=== PATIENT | female | born 1990 | race Caucasian/White ===

== ENCOUNTER 2017-01-31 19:42 | Emergency (ER) | payer OTHER ==
[~2017-01-31] VITALS: Ht 177.8 cm; Wt 62.3 kg
[~2017-01-31 19:42] MED LIST: ALBU8.5H2 INHALATION; BECL8.7A6 IH; IBUP800T28 PO; MULT-666 PO; OXYC1TAB24 PO; SUMA50TA2 PO
[2017-01-31 19:55] VITALS: BP 116/81; PULSE 82; RESP 20; O2SAT 98
--- NOTE | 2017-01-31 20:43 | ED.REPORT ---
HPI-Abd Pain F Under 40 Date of Service Jan 31, 2017 ED Provider: Lebron Villasenor DO Pt is a 26 y.o. female with a hx of asthma and unspecified renal problems who presents to the ED c/o abdominal pain onset 0300 yesterday. She reports associated fever (103.1F), nausea, vomiting, and diarrhea. She denies hematochezia and hematemesis. She also denies recent travel, or consumption of well, stream, or [place] water. Pt states that she had the flu on Jan 08 and was seen at [place], she received CT and it was normal. She denies recent sick contacts. Nursing Notes Stated Complaint: RT SIDE ABDOMEN PAIN Chief Complaint: Female Abdominal Pain Nursing Notes Reviewed: Yes Allergies: Coded Allergies: latex (Verified Allergy, Severe, RASH/HIVES, 01/31/17) adhesive tape (Verified Allergy, Intermediate, rash, 01/31/17) Penicillins (Verified Allergy, Unknown, ALLERGY TESTING SHOWED RXN TO PCN , 01/31/17) erythromycin base (Verified Allergy, Unknown, 01/31/17) Sulfa (Sulfonamide Antibiotics) (Verified Adverse Reaction, Severe, N/V, ) amoxicillin (Verified Adverse Reaction, Severe, VOMITING, 01/31/17) Uncoded Allergies: CHOCOLATE (Allergy, Intermediate, N/V, 09/02/15) Scheduled Albuterol HFA (Proair HFA) 8.5 Gm Hfa.aer.ad 2 PUFFS INHALATION PRN Beclomethasone Dipropionate (Qvar) 8.7 Gm Aer.w.adap 8.7 GM IH BID Sumatriptan Succinate (Sumatriptan Succinate) 50 Mg Tablet 50 MG PO PRN Scheduled PRN Ibuprofen (Ibuprofen) 800 Mg Tablet 800 MG PO Q6H PRN PRN For Pain oxyCODONE-Acetaminophen 5-325 mg (oxyCODONE-Acetaminophen 5-325 mg) 1 Tab Tablet 1-2 TAB PO Q4H PRN PRN For Pain Miscellaneous Medications Multivitamin (Once Daily) 1 Each Tablet 1 EACH PO General Time Seen by MD: 20:42 Chief Complaint Abdominal pain Hx Obtained From: Patient Arrived By: Walk-in Sudden in Onset?: Yes Onset Occurred: Yesterday Symptom Duration: Since onset Location: : RLQ Quality: Painful Severity: Current: Mild Past Medical History Past Medical History Notes: Post , admit 08/29-08/31 @ 40 5/7 weeks Past Medical History h/o kidney probems requring stent (details unclear) Reports: Asthma Past Surgical History R knee and 4 ear surgeries and stent placement while Reports: Tonsillectomy Reports: Back/neck surgery Smoking History Former Smoker Social History Alcohol Use: "Social" Drug Use: THC 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 Physical Exam Initial Vital Signs Vital Signs (First) Date Time Temp Pulse Resp B/P Pulse Ox O2 Delivery O2 Flow Rate FiO2 01/31/17 19:55 37.3 82 20 116/81 98 Room Air Initial VS: Reviewed Head / Eyes: Atraumatic, Normocephalic Extremities: Vascular intact, Neuro intact Skin: Warm, Dry, No cyanosis Neurologic: Alert, Oriented, Nonfocal Psychiatric: Mood/affect normal, Behavior normal, Normal thought content General/Constitutional: Awake, Alert, No acute distress, Well appearing, Well developed, Well hydrated, Well nourished, Not toxic appearing Respiratory / Chest: Atraumatic, Breath sounds NL, Breath sounds = bilat, No respiratory distress, No rales, No rhonchi, No wheezing, No retractions, No stridor Cardiovascular: Heart rate NL, Regular rhythm, Heart sounds NL, No gallop, No murmurs, Peripheral circulation NL Abdomen: Atraumatic, Soft, No guarding, No rebound, No distention Tenderness/Guarding/Rebound: Positive: Tender RLQ... Bowel Sounds / Distention: Positive: Bowel sounds hyperactive Back: Atraumatic Well healed surgical incision Neck: Atraumatic, Supple, No adenopathy Interpretation & Diagnostics Lab Results Interpretation Result Diagram: 01/31/17203701/31/172037 Test 01/31/17 20:21 01/31/17 20:38 Urine Color Yellow (YELLOW) Urine Appearance Clear (CLEAR,HAZY) Urine pH 6.5 (5.0-8.0) Urine Specific [place] 1.020 (1.003-1.035) Urine Protein Negativemg/dL (NEG,TRACE) Urine Glucose (UA) Negativemg/dL (NEGATIVE) Urine Ketones Negativemg/dL (NEGATIVE) Urine Occult Blood Trace (NEGATIVE) Urine Nitrite Negative (NEGATIVE) Urine Bilirubin Negative (NEGATIVE) Urine Urobilinogen 1.0mg/dL (NORMAL) Urine Leukocyte Esterase Negative (NEGATIVE) Urine RBC 0-2/hpf (0-2) Urine WBC 0-5/hpf (0-5) Urine Epithelial Cells Moderate/hpf (NONE-MOD) Urine Crystals None seen (NONE SEEN) Urine Bacteria None/hpf (NONE-FEW) Urine Hyaline Casts None/lpf (NONE) Urine Granular Casts None seen (NONE SEEN) Urine Waxy Casts None seen (NONE SEEN) Urine Red Blood Cell Casts None seen (NONE SEEN) Urine White Blood Cell Casts None seen (NONE SEEN) Urine Mucus Present (None Seen) Urine Trichomonas None seen (NONE SEEN) Urine Yeast None (NONE SEEN) Urinalysis Comment None Urine Culture Reflexed Not indicated White Blood Count 9.8th/mm3 (3.8-10.1) Red Blood Count 4.55mil/mm3 (3.90-5.20) Hemoglobin 13.4g/dL (12.0-15.6) Hematocrit 39.1% (35.0-46.0) Mean Corpuscular Volume 85.9fL (81-100) Mean Corpuscular Hemoglobin 29.5pg (27.0-35.0) Mean Corpuscular Hemoglobin Concent 34.3% (32.0-37.0) Red Cell Distribution Width 12.2% (12.3-15.4) Platelet Count 210bil/L (150-400) Neutrophils (%) (Auto) 48.4% (40-74) Lymphocytes (%) (Auto) 44.0% (14-46) Monocytes (%) (Auto) 5.8% (4-12) Eosinophils (%) (Auto) 1.4% (0-5) Basophils (%) (Auto) 0.3% (0-3) Sodium Level 141mEq/L (134-144) Potassium Level 3.7mEq/L (3.5-5.2) Chloride Level 103mEq/L (97-108) Carbon Dioxide Level 24mmol/L (18-29) Blood Urea Nitrogen 16mg/dL (6-20) Creatinine 0.64mg/dL (0.57-1.00) Estimat Glomerular Filtration Rate 162mL/min (>59) Glucose Level 87mg/dL (60-99) Calcium Level 9.5mg/dL (8.5-10.1) Magnesium Level 2.0mg/dL (1.6-2.6) Total Bilirubin 0.8mg/dL (0.0-1.2) Aspartate Amino Transf (AST/SGOT) 15U/L (0-50) Alanine Aminotransferase (ALT/SGPT) 10U/L (0-32) Alkaline Phosphatase 52U/L (25-150) Total Protein 7.4g/dL (6.4-8.4) Albumin 5.1g/dL (3.4-5.0) Lipase 12U/L (13-60) Hold Red Top Tube Received (Received) Hold Paula Top Tube Received (Received) Re-Eval/Medical Decision Med Decision/Clinical Course Ultrasound was reassuring, the appendix was not clearly seen. Upon recheck pt is feeling improved, her pain resolved, and only has nausea. I prescribed Zofran for the nausea. I discussed performing a CT scan with Colleen and she made me aware that she has had 2 in last couple months does not wish to undergo another. Discussed the need for a repeat US in the morning if her pain persisted. Re-Evaluation/Progress : Time of Eval: 22:34 Re-Evaluation/Progress Note: Pt rechecked. Discussed plan for discharge, pt understands and agrees with plan. Counseled Regarding: Diagnosis Discharge & Departure Shift Change Sign-Out Response to Therapy: Improved Primary Impression: Abdominal pain Abdominal location: right lower quadrant Qualified Code: R10.31 - Right lower quadrant pain Additional Impression: Nausea vomiting and diarrhea Disposition: Home Discharge Condition All VS Reviewed: Yes Condition: Improved Patient Instructions: Acute Nausea and Vomiting (ED), Acute Abdominal Pain (ED) Additional Instructions: You were seen here today for nausea, vomiting,and abdominal pain. I recommend that you maintain a clear liquid diet and do not consume anything after midnight tonight. Return in 8-10 hours for a repeat ultrasound if your pain persists. You may have an early appendicitis so it is important that you have a repeat the ultrasound if your pain does not resolve. Take 1 Zofran every 8 hours as needed for nausea. Do not drive tonight. Return if you develop bloody diarrhea, increased pain, begin vomiting blood, or have any new or worsening symptoms. Referrals: Kenisha Toussaint PA-C (PCP) Lori Attestation Portions of this note were transcribed by Josep Alejandro. I, Dr. Villasenor personally performed the history, physical exam and medical decision-making; I reviewed and confirmed the accuracy of the information in the transcribed note. Signed by : Lori Escobar, 01/31/17 and [id number]. copies to: Kenisha Toussaint PA-C, Todd P DO Jan 31, 2017 20:43 JOSEP ALEJANDRO Jan 31, 2017 21:09
[2017-01-31 20:46] LABS: BASOPHILS % (AUTO) 0.3 % (0-3); EOSINOPHILS % (AUTO) 1.4 % (0-5); MONOCYTES % (AUTO) 5.8 % (4-12); Mean Corpuscular Hemoglobin 29.5 pg (27.0-35.0); Mean Corpuscular Volume 85.9 fL (81-100); NEUTROPHILS % (AUTO) 48.4 % (40-74); Platelet Count 210 bil/L (150-400)
[2017-01-31 20:56] LABS: APPEARANCE,URINE CLEAR (CLEAR,HAZY); COLOR,URINE YELLOW (YELLOW); OCCULT BLOOD,URINE TRACE (NEGATIVE); PH,URINE 6.5 (5.0-8.0)
[2017-01-31] MEDS ORDERED: 0.9% Sodium Chloride 1,000 ML IV SCH (21:15)
[2017-01-31] MEDS ORDERED: HYDROmorphone 0.5 mg/0.5 mL iSecure Syringe IVPUSH PRN (21:15)
[2017-01-31] MEDS ORDERED: Ondansetron 2 mg/mL 2 mL Inj IVPUSH PRN (21:15)
[2017-01-31] MEDS ORDERED: _Ondansetron ODT 4 mg Tablet PO PRN (22:50)
[2017-01-31 23:38] VITALS: BP 125/70; PULSE 88; RESP 16; O2SAT 97; O2SAT 98
--- NOTE | 2017-02-01 08:10 | DRSVH ---
PROCEDURE: US APPENDIX INDICATIONS: rlq pain TECHNIQUE: Real-time focused scanning was performed of the abdomen with attention to the appendix, with image do cumentation. COMPARISON: [facility], CT, CT ABDOMEN PELVIS W CONTRAST, 01/08/2017, 9:16 PM. FINDINGS: Limited evaluation of the right lower quadrant demonstrates no abnormalities. The appendix is not cl early identified sonographically. No abnormal fluid collections or masses seen. Grossly normal appearance of the right ovary. An IUD is identified. IMPRESSION: The appendix is not visualized and cannot be evaluated. If medically indicated, contrast enhanced abdominal CT may be obtained for further evaluation. Note: These findings are concordant with the preliminary interpretation. Dictated by: Mayco AREVALO Interpreted: Amor Pemberton MD on 02/01/2017 at 8:08 Transcribed by: ZAYRA on 02/01/2017 at 8:10 Approved by: Amor Pemberton M.D. on 02/01/2017 at 8:28
== END 2017-01-31 23:39 | disposition home or self-care (01) ==
LOC: SED 19:42
DX: R10.31 Right lower quadrant pain (principal); R11.2 Nausea with vomiting, unspecified; R19.7 Diarrhea, unspecified; F12.10 Cannabis abuse, uncomplicated; J45.909 Unspecified asthma, uncomplicated; Z87.891 Personal history of nicotine dependence; Z88.0 Allergy status to penicillin; Z88.2 Allergy status to sulfonamides; Z88.1 Allergy status to other antibiotic agents
CPT/HCPCS: 36415; 76705; 80053; 81000; 81025; 83690; 83735; 85025; 96361; 96374; 96375; 99285; J1170; J2405; J7030

== ENCOUNTER 2017-08-02 12:44 | Emergency (ER) | payer OTHER ==
[~2017-08-02] VITALS: Ht 180.3 cm; Wt 59.5 kg
[2017-08-02 13:24] VITALS: BP 127/82; PULSE 112; RESP 18; O2SAT 99
[2017-08-02 13:54] LABS: BASOPHILS % (AUTO) 0.5 % (0-3); EOSINOPHILS % (AUTO) 1.6 % (0-5); MONOCYTES % (AUTO) 6.1 % (4-12); Mean Corpuscular Hemoglobin 30.7 pg (27.0-35.0); Mean Corpuscular Volume 92.5 fL (81-100); NEUTROPHILS % (AUTO) 67.5 % (40-74); Platelet Count 231 bil/L (150-400)
[2017-08-02 14:16] LABS: Magnesium 1.9 mg/dL (1.6-2.6)
--- NOTE | 2017-08-02 14:49 | ED.REPORT ---
HPI-General Illness Date of Service Aug 02, 2017 ED Provider: Kings Ogden MD Pt is a 26 year old female with a hx of asthma presenting to the ED complaining of abdominal pain. She states that when she coughed the other day (5 days ago), she had sudden onset sharp localized left lower quadrant abdominal pain. The pain is intermittent, and is exacerbated by coughing or laughing. She denies hx of previous symptoms. She states that she thinks she may have strained a muscle during intercourse. There is no pain when she is not coughing or moving around. Associated symptoms include hematuria. Denies nausea, vomiting, bloody stool, diarrhea, constipation, chest pain, SOB, headache, fever, vaginal bleeding or discharge. Nursing Notes Stated Complaint: SEVERE STOMACH PAIN Chief Complaint: Female Abdominal Pain Nursing Notes Reviewed: Yes Allergies: Coded Allergies: latex (Verified Allergy, Severe, RASH/HIVES, 01/31/17) adhesive tape (Verified Allergy, Intermediate, rash, 01/31/17) Penicillins (Verified Allergy, Unknown, ALLERGY TESTING SHOWED RXN TO PCN , 01/31/17) Sulfa (Sulfonamide Antibiotics) (Verified Adverse Reaction, Severe, N/V, ) amoxicillin (Verified Adverse Reaction, Severe, VOMITING, 01/31/17) Uncoded Allergies: CHOCOLATE (Allergy, Intermediate, N/V, 09/02/15) Scheduled Albuterol HFA (Proair HFA) 8.5 Gm Hfa.aer.ad 2 PUFFS INHALATION PRN Beclomethasone Dipropionate (Qvar) 8.7 Gm Aer.w.adap 8.7 GM IH BID Sumatriptan Succinate (Sumatriptan Succinate) 50 Mg Tablet 50 MG PO PRN Scheduled PRN Ibuprofen (Ibuprofen) 800 Mg Tablet 800 MG PO Q6H PRN PRN For Pain oxyCODONE-Acetaminophen 5-325 mg (oxyCODONE-Acetaminophen 5-325 mg) 1 Tab Tablet 1-2 TAB PO Q4H PRN PRN For Pain Miscellaneous Medications Multivitamin (Once Daily) 1 Each Tablet 1 EACH PO General Time Seen by MD: 14:48 Chief Complaint Abdominal pain Hx Obtained From: Patient Arrived By: Walk-in Sudden in Onset?: Yes Onset Occurred: 5 days ago Symptom Duration: Since onset Location: : Abdomen Quality: Painful Severity: Current: Pain level 5 out of 10 Severity: Maximum: Pain scale (15/10) Recent Healthcare: No recent doctor visit, No recent hospitalization Similar Sx Previous: No Past Medical History Past Medical History Notes: Post , admit 08/29-08/31 @ 40 5/7 weeks Past Medical History h/o kidney probems requring stent (details unclear) Reports hx of seizure activity so she takes seizure medication for a left hand tremor Ovarian cyst Reports: Asthma Past Surgical History R knee and 4 ear surgeries and temporary kidney stent placement while Reports: Tonsillectomy Reports: Back/neck surgery Smoking History Former Smoker Social History Alcohol Use: "Social" Drug Use: THC 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, works in an office, 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 Ambulatory Status Independent Review of Systems Full Review of Systems Constitutional: Denies: Fever Eyes: Denies: Diplopia Ears / Nose / Throat: Denies: Throat pain Respiratory: Denies: Shortness of breath Cardiovascular: Denies: Chest pain GI: Reports: Abdominal pain, Denies: Bloody/tarry stool, Constipation, Diarrhea, Nausea, Vomiting Female: Reports: Hematuria, Denies: Vaginal bleeding - abnl, Vaginal discharge Hematologic: Denies Bruising Endocrine: Denies: Polyuria Skin: Denies Itching Allergy / Immune: Denies: Itching Neurologic: Denies: Headache Psychiatric: Denies: Change mental status Complete sys rev & neg: except as marked. Physical Exam Nursing note and vitals reviewed. Constitutional: Well-developed, well-nourished. Not diaphoretic. Head: Normocephalic and atraumatic. Mouth/Throat: Oropharynx is clear and moist. No oropharyngeal exudate. Eyes: EOM are normal. Pupils are equal, round, and reactive to light. Neck: Supple, no tracheal deviation. Cardiovascular: Normal rate, regular rhythm. Equal and intact distal pulses throughout. Pulmonary/Chest: Effort normal and breath sounds normal. No respiratory distress. Abdominal: Soft. No distension. There is no tenderness, rebound, or guarding. Bowel sounds present. She has some very mild point tenderness superficially just under the skin around the left rectus muscle. Musculoskeletal: Range of motion grossly intact, moving all extremities. No edema or tenderness appreciated. Neurological: AOx3. Grossly nonfocal exam. Strength and sensation intact and equal to bilateral upper and lower extremities. Skin: Warm and dry, no rashes or pallor appreciated. Psychiatric: Appropriate mood and affect. Behavior appears normal. Vital Signs Vital Signs Date Time Temp Pulse Resp B/P Pulse Ox O2 Delivery O2 Flow Rate FiO2 08/02/17 15:48 40 47 128/72 99 Room Air 08/02/17 13:24 36.6 112 18 127/82 99 Initial VS: Reviewed Interpretation & Diagnostics Lab Results Interpretation Result Diagram: 08/02/17 1345 08/02/17 1345 Test 08/02/17 13:45 08/02/17 14:48 White Blood Count 10.1th/mm3 (3.8-10.1) Red Blood Count 4.14mil/mm3 (3.90-5.20) Hemoglobin 12.7g/dL (12.0-15.6) Hematocrit 38.3% (35.0-46.0) Mean Corpuscular Volume 92.5fL (81-100) Mean Corpuscular Hemoglobin 30.7pg (27.0-35.0) Mean Corpuscular Hemoglobin Concent 33.2% (32.0-37.0) Red Cell Distribution Width 13.7% (12.3-15.4) Platelet Count 231bil/L (150-400) Neutrophils (%) (Auto) 67.5% (40-74) Lymphocytes (%) (Auto) 24.0% (14-46) Monocytes (%) (Auto) 6.1% (4-12) Eosinophils (%) (Auto) 1.6% (0-5) Basophils (%) (Auto) 0.5% (0-3) Sodium Level 138mEq/L (134-144) Potassium Level 4.3mEq/L (3.5-5.2) Chloride Level 101mEq/L (97-108) Carbon Dioxide Level 26mmol/L (18-29) Blood Urea Nitrogen 24mg/dL (6-20) Creatinine 0.67mg/dL (0.57-1.00) Estimat Glomerular Filtration Rate 154mL/min (>59) Glucose Level 85mg/dL (60-99) Calcium Level 9.2mg/dL (8.5-10.1) Magnesium Level 1.9mg/dL (1.6-2.6) Total Bilirubin 0.2mg/dL (0.0-1.2) Aspartate Amino Transf (AST/SGOT) 16U/L (0-50) Alanine Aminotransferase (ALT/SGPT) 13U/L (0-32) Alkaline Phosphatase 94U/L (25-150) Total Protein 6.8g/dL (6.4-8.4) Albumin 4.5g/dL (3.4-5.0) Lipase 22U/L (13-60) Hold Paula Top Tube Received (Received) Urine Color Yellow (YELLOW) Urine Appearance Hazy (CLEAR,HAZY) Urine pH 6.0 (5.0-8.0) Urine Specific [place] 1.020 (1.003-1.035) Urine Protein Negativemg/dL (NEG,TRACE) Urine Glucose (UA) Negativemg/dL (NEGATIVE) Urine Ketones Negativemg/dL (NEGATIVE) Urine Occult Blood Trace (NEGATIVE) Urine Nitrite Negative (NEGATIVE) Urine Bilirubin Negative (NEGATIVE) Urine Urobilinogen Normalmg/dL (NORMAL) Urine Leukocyte Esterase Trace (NEGATIVE) Urine RBC 0-2/hpf (0-2) Urine WBC 0-5/hpf (0-5) Urine Epithelial Cells Many/hpf (NONE-MOD) Urine Crystals None seen (NONE SEEN) Urine Bacteria Few/hpf (NONE-FEW) Urine Hyaline Casts None/lpf (NONE) Urine Granular Casts None seen (NONE SEEN) Urine Waxy Casts None seen (NONE SEEN) Urine Red Blood Cell Casts None seen (NONE SEEN) Urine White Blood Cell Casts None seen (NONE SEEN) Urine Mucus None seen (None Seen) Urine Trichomonas None seen (NONE SEEN) Urine Yeast None (NONE SEEN) Urinalysis Comment None Urine Culture Reflexed Indicated Re-Eval/Medical Decision Med Decision/Clinical Course In summary, 26-year-old female who presents to the ED for evaluation of abdominal pain without nausea or vomiting over the past several days in the setting of straining it while having intercourse. DDx broad and includes ectopic , ovarian torsion, ruptured ovarian cyst, PID, SBO, appendicitis, cholecystitis/biliary colic, pancreatitis, nephrolithiasis/renal colic, hernia. Upon arrival to the ED, patient hemodynamically stable, vitals grossly within normal limits with the exception of mild tachycardia, however upon reassessment , her heart rate is in the 70s. Of note, the patient only has pain when she is nilsa her abdominal muscles when coughing or laughing and it is absent at other times. She seems to remember a precise time that it started while exerting herself. She has clear tenderness to the rectus muscle on the left without any other tenderness in her abdomen, including to deep palpation. No rebound or guarding. No flank tenderness. No vaginal discharge, no vaginal bleeding. Urine test here negative. CBC and CMP grossly within normal limits. Urinalysis shows only trace occult blood, however no red blood cells. No signs of urinary tract infection. Lipase within normal limits. Discussed performing further workup, including CT or ultrasound, as well as a pelvic exam, however given the above, I gave the patient the choice and discussed the risks and benefits of pursuing this further. She would prefer to hold off on further workup or imaging at this time, and this seems reasonable. She states that she has an appointment with her primary doctor and will return immediately if she develops any change in her symptoms, nausea, vomiting, the pain persists, or if there is anything else of concern to her. I instructed her to get a repeat abdominal examination in 24 hours for reassessment. Given the above complaint discharge, very careful return precautions, follow-up as above. Patient agreeable to the plan as stated, no further questions. Time of Eval: 15:56 Patient Status: Condition improved Re-Evaluation/Progress Note: Discussed plan for discharge. Pt understands and agrees. Counseled Regarding: Diagnosis, Lab results, Need for follow-up, When/why to return to ED Discharge & Departure Primary Impression: Abdominal pain Abdominal location: left lower quadrant Qualified Code: R10.32 - Left lower quadrant pain Disposition: Home Discharge Condition All VS Reviewed: Yes Condition: Improved Patient Instructions: Acute Abdominal Pain (ED) Additional Instructions: Thank you for allowing us to be a part of your care in the ED today. Your emergency department results, including your labs, are reassuring. I do not think that there is an emergent cause for your symptoms today that would require admission to the hospital; however, a clear cause of your symptoms was not identified. As we discussed, it is possible that we could miss something more serious inside of your abdomen without doing further imaging, however you would like to be discharged home and return if your symptoms worsen. Please schedule a follow up appointment with your primary care physician tomorrow for a recheck. Monitor your abdominal pain over the next 24 hours. If your pain increases, return to the ER for a CT scan or ultrasound. Please return to the emergency department for any new or worsening symptoms including any nausea, vomiting, abdominal pain, shortness of breath, chest pain , one sided weakness/numbness, fevers, or chills, or if there's anything else of concern to you. Referrals: Kenisha Toussaint PA-C (PCP) Scribe Attestation Portions of this note were transcribed by Jess Burnette. I, Dr. Ogden personally performed the history, physical exam and medical decision-making; I reviewed and confirmed the accuracy of the information in the transcribed note. Signed by: Lori Murphy, 08/02/2017. copies to: Kenisha Toussaint PA-C, William B MD Aug 02, 2017 14:49 JESS BURNETTE Aug 02, 2017 15:21
[2017-08-02 15:10] LABS: APPEARANCE,URINE HAZY (CLEAR,HAZY); COLOR,URINE YELLOW (YELLOW)
[2017-08-02 15:11] LABS: OCCULT BLOOD,URINE TRACE (NEGATIVE); UROBILINOGEN,URINE NORMAL (NORMAL)
[2017-08-02 15:48] VITALS: BP 128/72; PULSE 40; RESP 47; O2SAT 99
== END 2017-08-02 15:55 | disposition home or self-care (01) ==
LOC: SED 12:44
DX: R10.32 Left lower quadrant pain (principal); J45.909 Unspecified asthma, uncomplicated; Z98.890 Other specified postprocedural states; Z87.891 Personal history of nicotine dependence; Z88.1 Allergy status to other antibiotic agents; Z88.2 Allergy status to sulfonamides; Z91.040 Latex allergy status; Z91.048 Other nonmedicinal substance allergy status